=== PATIENT | male | born 1965 | race Caucasian/White ===

== ENCOUNTER 2017-07-27 14:30 | Emergency (ER) | payer OTHER ==
[~2017-07-27] VITALS: Ht 167.6 cm; Wt 104.3 kg
[2017-07-27] MEDS ORDERED: TENORMIN25 MG (14:58)
[2017-07-27] MEDS ORDERED: METFORMIN HCL1000 M1 (14:58)
[2017-07-27] MEDS ORDERED: LOSARTAN-HCTZ1 EAC2 (14:59)
[2017-07-27] MEDS ORDERED: LIPITOR20 MG (14:59)
== END 2017-07-27 19:57 | disposition home or self-care (01) ==
LOC: ER 14:30
DX: R10.13 Epigastric pain (principal)

== ENCOUNTER 2017-07-29 09:22 | Outpatient (CLI) | payer OTHER ==
[~2017-07-29 09:22] MED LIST: LIPITOR20 MG; LOSARTAN-HCTZ1 EAC2; METFORMIN HCL1000 M1; TENORMIN25 MG
== END 2017-07-29 09:37 | disposition home or self-care (01) ==
LOC: NUCLEAR 09:22
DX: Z85.038 Personal history of other malignant neoplasm of large intestine (principal)
CPT/HCPCS: 78815; A9552

== ENCOUNTER 2017-09-05 12:04 | Outpatient (CLI) | payer OTHER | END 2017-09-05 12:10 | disposition home or self-care (01) | LOC: RAD 12:04 | DX: D12.2 Benign neoplasm of ascending colon (principal); Z01.818 Encounter for other preprocedural examination ==

== ENCOUNTER 2017-09-06 10:19 | Inpatient (IN) | payer OTHER ==
[~2017-09-06] VITALS: Ht 167.6 cm; Wt 99.8 kg
[2017-09-17] MEDS ORDERED: QUESTRAN PACKET4 GM PO (13:36)
[2017-09-17] MEDS ORDERED: OXYC1TAB9 PO (13:36)
[2017-09-17] MEDS ORDERED: HYOSCYAMINE0.125 M1 SL (13:36)
== END 2017-09-17 14:14 | disposition home or self-care (01) | DRG 330 ==
LOC: SURG 09-14 06:26 → O/R 09-14 06:26 → MEDI 09-14 16:03 → SURG 09-14 16:03
PROVIDERS: Colon & Rectal Surgery
PROC: 0DBU4ZZ Excision of Omentum, Percutaneous Endoscopic Approach (ICD-10-PCS; 2017-09-14)
PROC: 0WQF4ZZ Repair Abdominal Wall, Percutaneous Endoscopic Approach (ICD-10-PCS; 2017-09-14)
PROC: 4A033R1 Measurement of Arterial Saturation, Peripheral, Percutaneous Approach (ICD-10-PCS; 2017-09-14)
PROC: 4A12X4Z Monitoring of Cardiac Electrical Activity, External Approach (ICD-10-PCS; 2017-09-14)
PROC: 0DTE4ZZ Resection of Large Intestine, Percutaneous Endoscopic Approach (ICD-10-PCS; principal; 2017-09-14 08:30)
PROC: BT43ZZZ Ultrasonography of Bilateral Kidneys (ICD-10-PCS; 2017-09-16)
DX: D12.2 Benign neoplasm of ascending colon (principal); K43.6 Other and unspecified ventral hernia with obstruction, without gangrene; N17.8 Other acute kidney failure; D12.3 Benign neoplasm of transverse colon; D64.89 Other specified anemias; E11.9 Type 2 diabetes mellitus without complications; I11.9 Hypertensive heart disease without heart failure; E78.4 Other hyperlipidemia; G47.33 Obstructive sleep apnea (adult) (pediatric); N99.0 Postprocedural (acute) (chronic) kidney failure